=== PATIENT | female | born 2000 | race African-American/Black ===

== ENCOUNTER 2021-03-13 16:42 | Emergency (ER) | payer SELFPAY | END 2021-03-13 17:40 | disposition home or self-care (01) | LOC: MADERS 16:42 | DX: O9A.211 Injury, poisoning and certain other consequences of external causes complicating pregnancy, first trimester (principal); S93.602A Unspecified sprain of left foot, initial encounter; R26.9 Unspecified abnormalities of gait and mobility; E66.9 Obesity, unspecified; Z3A.01 Less than 8 weeks gestation of pregnancy; X58.XXXA Exposure to other specified factors, initial encounter ==

== ENCOUNTER 2021-03-31 20:37 | Outpatient (CLI) | payer SELFPAY ==
[2021-03-31 21:58] LABS: BHCG - Serum POSITIVE (NEGATIVE); Pregs Control Background? CLEAR/WHITE (CLR/WHITE); Pregs Control Bar Appear? YES (CONTROL BAR)
== END 2021-03-31 20:38 | disposition home or self-care (01) ==
LOC: MADLAB 20:37
PROVIDERS: ATTEND Family Medicine
DX: Z32.00 Encounter for pregnancy test, result unknown (principal)
CPT/HCPCS: 36415; 84703